=== PATIENT | female | born 1985 | race Caucasian/White ===

== ENCOUNTER 2016-03-17 12:49 | Emergency (ER) | payer BC ==
[2016-03-17] MEDS ORDERED: NS 1,000 ML IV ONE (13:48)
[2016-03-17] MEDS ORDERED: ONDANSETRON 4 MG/2 ML VIAL IVP ONE (13:48)
[2016-03-17] MEDS ORDERED: FAMOTIDINE 20 MG/2 ML SDV IVP ONE (13:52)
--- NOTE | 2016-03-17 14:04 | EDPHY ---
H & P Stated Complaint: epigastric pain since 03/16/16. Nausea, light headed. Source: Patient Exam Limitations: No limitations - Personal History LMP (Females 10-55): Hysterectomy Current Tetanus Diphtheria and Acellular Pertussis (TDAP): Yes - Medical/Surgical History Hx Asthma: No Hx Chronic Respiratory Disease: No Hx Diabetes: No Hx Cardiac Disease: No Hx Renal Disease: No Hx Cirrhosis: No Hx Alcoholism: No Hx HIV/AIDS: No Hx Splenectomy or Spleen Trauma: No Other PMH: Hysterectomy Nov 2015. Bladder surgery Nov 2015 - Family History Significant Family History: No pertinent family hx - Social History Smoking Status: Former smoker Alcohol Use: None Drug Use: None Time Seen by Provider: 03/17/16 14:01 HPI/ROS: HPI: 31-year-old female presents to emergency department with chief concern abdominal pain. Reports up to 7/10 epigastric pain that onset suddenly yesterday morning associated with intermittent nausea, sweats, 1 episode of diarrhea. Denies fever, chills, URI symptoms, shortness of breath, chest pain, vomiting, urinary symptoms, back or flank pain. No aggravating or alleviating factors. Took Tums and Maalox with no improvement. Has not had this pain before. No personal or family history gallbladder issues. Denies alcohol or drug use. No recent travel. No recent antibiotic use. No recent infections. ROS:10 point review of systems is negative other than as stated in HPI (Traci Lagos) - Social History Additional Social History: (Traci Lagos) - Physical Exam Exam: Vital signs stable, reviewed by me General: Awake, alert, calm, cooperative. No acute distress. Head: Normalocephalic. Atraumatic. EENT: PERRLA. EOMI. No pallor or injection. Anicteric. No nystagmus. No injection. TMs intact bilaterally with normal landmarks. No rhinnorhea, nasal passages clear. Oropharynx without redness, exudates, or lesions. Tonsils 2+ bilaterally, no exudates. Neck: Supple, nontender. No lymphadenopathy. Full range of motion. No meningismus. Respiratory: Breathing unlabored. Breath sounds equal bilaterally and clear to auscultation. No adventitious sounds. CV: Chest nontender, atraumatic. Heart rate regular. No murmur, distal pulses 2+ bilaterally. Brisk cap refill all extremities. GI: Abdomen soft, right upper quadrant tenderness, positive Corbin sign. Bowel sounds normoactive and positive x4 quadrants. No right lower quadrant tenderness. No guarding. No rebound. : No suprapubic tenderness. No CVA or flank tenderness. Neuro: Alert. Oriented x 3. Speech clear. Nonfocal cranial nerves throughout. Sensation intact all extremities. Skin: Skin warm, dry, intact. No rashes, abrasions, or lacerations. Skin turgor normal. Extremities: Full range of motion in all 4 extremities. Strength 5+ all extremities. (Traci Lagos) Constitutional: Initial Vital Signs Temperature (C) 36.5 C 03/17/16 12:52 Heart Rate 90 03/17/16 12:52 Respiratory Rate 16 03/17/16 12:52 Blood Pressure 148/90 H 03/17/16 12:52 O2 Sat (%) 97 03/17/16 12:52 O2 Delivery Mode Room Air Allergies/Adverse Reactions: No Known Allergies Allergy (Unverified 03/21/11 07:17) Home Medications: Medication Instructions Recorded Cyanocobalamin [Vitamin B12 (*)] 1,000 mcg PO Q3D 10/07/15 Medical Decision Making ED Course/Re-evaluation: 1400:31-year-old female presents to emergency department with abdominal pain. Positive Corbin sign. She is afebrile. Labs pending. Urinalysis and right upper quadrant ultrasound pending. Declines pain medication. CBC unremarkable. Basic metabolic panel unremarkable. LFTs and lipase are negative. Urinalysis is negative. Urine HCG negative. Right upper quadrant ultrasound is negative for evidence of gallbladder disease. Patient counseled to follow up with primary care and customary return precautions given. (Traci Lagos) Differential Diagnosis: Differential diagnosis includes but is not limited to cholecystitis, dyspepsia, gastritis, PUD, pancreatitis (Traci Lagos) Other Provider: The patient was evaluated and managed by the Physician Histopathologist/ Nurse Practitioner. My co-signature indicates that I have reviewed this chart and I agree with the findings and plan of care as documented. I am the secondary supervising physician. (Dory Daniels) - Data Points Laboratory Results: Laboratory Results 03/17/16 13:05 03/17/16 13:05 03/17/16 13:05 WBC 6.45 10^3/uL (3.80-9.50) RBC 5.21 10^6/uL (4.18-5.33) Hgb 15.4 g/dL (12.6-16.3) Hct 44.7 % (38.0-47.0) MCV 85.8 fL (81.5-99.8) MCH 29.6 pg (27.9-34.1) MCHC 34.5 g/dL (32.4-36.7) RDW 11.9 % (11.5-15.2) Plt Count 271 10^3/uL (150-400) MPV 9.9 fL (8.7-11.7) Neut % (Auto) 66.0 % (39.3-74.2) Lymph % (Auto) 23.7 % (15.0-45.0) [place] % (Auto) 8.4 % (4.5-13.0) Eos % (Auto) 1.2 % (0.6-7.6) Baso % (Auto) 0.5 % (0.3-1.7) Nucleat RBC Rel Count 0.0 % (0.0-0.2) Absolute Neuts (auto) 4.26 10^3/uL (1.70-6.50) Absolute Lymphs (auto) 1.53 10^3/uL (1.00-3.00) Absolute Monos (auto) 0.54 10^3/uL (0.30-0.80) Absolute Eos (auto) 0.08 10^3/uL (0.03-0.40) Absolute Basos (auto) 0.03 10^3/uL (0.02-0.10) Absolute Nucleated RBC 0.00 10^3/uL (0-0.01) Immature Gran % 0.2 % (0.0-1.1) Immature Gran # 0.01 10^3/uL (0.00-0.10) Sodium 141 mEq/L (134-144) Potassium 3.8 mEq/L (3.5-5.2) Chloride 104 mEq/L (97-110) Carbon Dioxide 25 mEq/l (22-31) Anion Gap 12 mEq/L (8-16) BUN 7 mg/dL (7-23) Creatinine 0.7 mg/dL (0.6-1.0) Estimated GFR > 60 Glucose 87 mg/dL (70-100) Calcium 10.2 mg/dL (8.5-10.4) Total Bilirubin 0.4 mg/dL (0.1-1.4) Conjugated Bilirubin 0.4 mg/dL (0.0-0.5) Unconjugated Bilirubin 0.0 mg/dL (0.0-1.1) AST 25 IU/L (14-46) ALT 36 IU/L (9-52) Alkaline Phosphatase 65 IU/L (38-126) Total Protein 7.8 g/dL (6.3-8.2) Albumin 4.8 g/dL (3.5-5.0) Lipase 77.0 IU/L (23-300) Urine Color PALE YELLOW Urine Appearance CLEAR Urine pH 5.0 (5.0-7.5) Ur Specific [place] 1.004 (1.002-1.030) Urine Protein NEGATIVE (NEGATIVE) Urine Ketones NEGATIVE (NEGATIVE) Urine Blood NEGATIVE (NEGATIVE) Urine Nitrate NEGATIVE (NEGATIVE) Urine Bilirubin NEGATIVE (NEGATIVE) Urine Urobilinogen NEGATIVE EU (0.2-1.0) Ur Leukocyte Esterase NEGATIVE (NEGATIVE) Urine Glucose NEGATIVE (NEGATIVE) Urine Test NEGATIVE Medications Given: Discontinued Medications Famotidine (Pepcid) 20 mg IVP EDNOW ONE Stop: 03/17/16 13:53 Last Admin: 03/17/16 14:08 Dose: 20 mg Sodium Chloride (Ns) 1,000 mls @ 0 mls/hr IV ONCE ONE PRN Reason: Wide Open Stop: 03/17/16 13:49 Last Admin: 03/17/16 14:08 Dose: 1,000 mls Miscellaneous Medication (Gi Cocktail) 55 ml PO EDNOW ONE Stop: 03/17/16 14:36 Last Admin: 03/17/16 14:55 Dose: 55 ml Ondansetron HCl (Zofran) 4 mg IVP EDNOW ONE Stop: 03/17/16 13:49 Last Admin: 03/17/16 14:02 Dose: Not Given Departure - Departure Disposition: Home, Routine, Self-Care Clinical Impression: Epigastric pain Condition: Good Instructions: Epigastric Pain (ED) Additional Instructions: Plan: Follow up with primary care tomorrow for recheck without fail--When you call to schedule appointment, please let the office know you are an "ER follow up" appointment" Minimize coffee, alcohol, NSAIDs Referrals: Yenny Carolina MD [Medical Doctor] - As per Instructions
[2016-03-17 14:12] LABS: % IMMATURE GRANULYOCYTES 0.2 % (0.0-1.1); ABSOLUTE IMMATURE GRANULOCYTES 0.01 10^3/uL (0.00-0.10); ADD DIFF? NO; ADD MORPH? NO; ADD SCAN? NO; ATYPICAL LYMPHOCYTE FLAG 10 (0-99); FRAGMENT RBC FLAG 0 (0-99); HEMATOCRIT 44.7 % (38.0-47.0); HEMOGLOBIN 15.4 g/dL (12.6-16.3); LEFT SHIFT FLG 0 (0-99); LIPEMIA HEMOLYSIS FLAG 90 (0-99); MEAN CELL HEMOGLOBIN 29.6 pg (27.9-34.1); MEAN CELL HEMOGLOBIN CONCENTR. 34.5 g/dL (32.4-36.7); MEAN CELL VOLUME 85.8 fL (81.5-99.8); MEAN PLATELET VOLUME 9.9 fL (8.7-11.7); PLATELET CLUMPS FLAG 10 (0-99); PLATELET COUNT 271 10^3/uL (150-400); RED BLOOD CELL COUNT 5.21 10^6/uL (4.18-5.33); RED CELL DISTRIBUTION WIDTH 11.9 % (11.5-15.2)
[2016-03-17 14:17] LABS: COLOR PALE YELLOW; LEUKOCYTE ESTERASE,URINE NEGATIVE (NEGATIVE); NITRITE,URINE NEGATIVE (NEGATIVE)
[2016-03-17] MEDS ORDERED: MAALOX/LIDO/HYOSC GI COCKTAIL 55 ML BOTTLE PO ONE (14:35)
--- NOTE | 2016-03-17 14:36 | US ---
Right Upper Quadrant Abdominal Sonogram History: Possible gallstones, RUQ pain Findings: There is possibly subtle mild right caliectasis. There are no gallstones, gallbladder wall thickening or pericholecystic fluid. The liver, pancreas, and common duct are normal. There is no asc ites. The visualized aorta and IVC are normal. Impression: 1. Normal gallbladder 2. Possible subtle right renal caliectasis. Might this patient be passing a kidney stone? Results called and discussed with Traci Lagos NP, at 03/17/2016 14:34
[2016-03-17 14:44] LABS: ALANINE AMINOTRANSFERASE 36 IU/L (9-52); ALBUMIN 4.8 g/dL (3.5-5.0); ALKALINE PHOSPHATASE 65 IU/L (38-126); ANION GAP 12 mEq/L (8-16); ASPARTATE AMINOTRANSFERASE 25 IU/L (14-46); BILIRUBIN,TOTAL 0.4 mg/dL (0.1-1.4); BILIRUBIN-CONJUGATED 0.4 mg/dL (0.0-0.5); CALCIUM 10.2 mg/dL (8.5-10.4); CARBON DIOXIDE 25 mEq/l (22-31); CHLORIDE 104 mEq/L (97-110); CREATININE 0.7 mg/dL (0.6-1.0); GLOMERULAR FILTRATION RATE > 60; GLUCOSE 87 mg/dL (70-100); POTASSIUM 3.8 mEq/L (3.5-5.2); SODIUM 141 mEq/L (134-144); TOTAL PROTEIN 7.8 g/dL (6.3-8.2)
[2016-03-17 15:17] VITALS: BP 114/79; PULSE 67; RESP 14; TEMP 99; O2SAT 96
== END 2016-03-17 15:16 | disposition home or self-care (01) ==
DX: R10.13 Epigastric pain (principal); Z87.891 Personal history of nicotine dependence; Z90.710 Acquired absence of both cervix and uterus
CPT/HCPCS: 96374